=== PATIENT | female | born 1970 | race Two or more races ===

== ENCOUNTER 2016-08-30 22:33 | Emergency (ER) | payer OTHER ==
[2016-08-31] MEDS ORDERED: ORPHENADRINE 60 MG/2 ML AMP ONE (00:35)
== END 2016-08-31 01:17 | disposition home or self-care (01) ==
LOC: ER 22:33
DX: S16.1XXA Strain of muscle, fascia and tendon at neck level, initial encounter (principal); S39.012A Strain of muscle, fascia and tendon of lower back, initial encounter; V49.49XA Driver injured in collision with other motor vehicles in traffic accident, initial encounter
CPT/HCPCS: 72050; 72100; 96372